=== PATIENT | female | born 1955 | race Caucasian/White ===

== ENCOUNTER 2018-03-22 08:02 | Emergency (ER) | payer OTHER ==
[2018-03-22 08:14] VITALS: BP 142/97
[2018-03-22] MEDS ORDERED: PROPARACAINE 0.5% OPHTH DROPS 15 ML EACHEYE STA (08:39)
--- NOTE | 2018-03-22 08:44 | ED Physician Documentation ---
PD HPI OPHTHO - Stated complaint Stated Complaint: BILAT EYE IRRITATION - Chief complaint Chief Complaint: Heent - History obtained from History obtained from: Patient - History of Present Illness Timing - onset: How many days ago (2) Timing - duration: Days (2) Timing - details: Abrupt onset, Still present Location: Both Quality / character: No: Itching, Burning, Aching, Throbbing Associated symptoms: No: Redness, Swelling, Tearing, Discharge, Matting, FB sensation Contributing factors: Other (patient is a hein) Similar symptoms before: Has not had sx before Recently seen: Not recently seen - Additional information Additional information: 62-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 She does not have a foreign body sensation or pain in any way she is able to see fibers in her visual field in both eyes. This is more prevalent in the right eye and appears to be mostly in the corner of the left eye medially. She has not had any discharge from her eyes and she is tried to rinse this out with water herself she has been unable to resolve these symptoms. Review of Systems Constitutional: denies: Fever Eyes: denies: Loss of vision, Decreased vision, Photophobia, Discharge, Irritation Ears: denies: Ear pain Nose: denies: Rhinorrhea / runny nose, Congestion Respiratory: denies: Cough GI: denies: Vomiting PD PAST MEDICAL HISTORY - Past Medical History Past Medical History: Yes Cardiovascular: Hypertension - Past Surgical History Past Surgical History: No - Present Medications Home Medications: Ambulatory Orders Medication Instructions Recorded Confirmed Perindopril Erbumine 2 mg PO 03/22/18 - Allergies Allergies/Adverse Reactions: Allergies Allergy/AdvReac Type Severity Reaction Status Date / Time NSAIDS (Non-Steroidal Allergy Nausea Verified 03/22/18 08:09 Anti-Inflamma - Social History Does the pt smoke?: No Smoking Status: Never smoker Does the pt drink ETOH?: No Does the pt have substance abuse?: No - Immunizations Immunizations are current?: Yes - POLST Patient has POLST: No PD ED PE NORMAL - Vitals Vital signs reviewed: Yes (hypertensive ) - General General: Alert and oriented X 3, No acute distress, Well developed/nourished - HEENT HEENT: Atraumatic, PERRL, EOMI, Other (There is no obvious abnormality to either eye by low magnification with good lighting. With the slit lamp on high magnification tiny white fibers of cotton are seen projecting from the upper lid. These are visible to the patient in her visual field. 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 She has no improvement with irrigation provided by the RN. She does have resolution of the symptoms in the left eye but continues to have symptoms in the right eye. With the assistance of the RN I was able to janet the lid and debride the backside of the tarsal plate with a cotton tip with ongoing irrigation. This improved the situation but did not completely resolve it. I subsequently asked to have the syrup mixer helper evaluate the patient. I am unable to see this with low power magnification and was only able to see this with high-power magnification of the slit lamp. Dr. Quinn is consulted in the case and will evaluate the patient today. - Sepsis Event Vital Signs: Vital Signs - 24 hr 03/22/18 08:07 Temperature 36.7 C Heart Rate 94 Respiratory 16 Rate Blood Pressure 142/97 H O2 Saturation 97 Oxygen O2 Source Room air Departure - Departure Disposition: 01 Home, Self Care Clinical Impression: Foreign body in eye Qualifiers: Encounter type: initial encounter Laterality: right Qualified Code(s): T15.91XA - Foreign body on external eye, part unspecified, right eye, initial encounter Condition: Stable Instructions: ED Eye Particle Conjunctiva FB Rslv Follow-Up: PIERRE QUINN MD [Physician No Access] - Discharge Date/Time: 03/22/18 10:02
== END 2018-03-22 10:02 | disposition home or self-care (01) ==
LOC: ED 08:02
DX: T15.91XA Foreign body on external eye, part unspecified, right eye, initial encounter (principal); W22.8XXA Striking against or struck by other objects, initial encounter; I10 Essential (primary) hypertension
CPT/HCPCS: 99283; J3490